=== PATIENT | female | born 1990 | race Caucasian/White ===

== ENCOUNTER 2020-10-24 18:58 | Emergency (ER) | payer OTHER ==
[~2020-10-24 18:58] MED LIST: NORCO 5-325 TA1 EACH PO; PHENERGAN25 M1 PO; ZOFRAN ODT4 MG SL
[2020-10-24] MEDS ORDERED: ONDANSETRON ODT4 MG SL (20:31)
[2020-10-24] MEDS ORDERED: IBUPROFEN800 MG PO (20:31)
[2020-10-24] MEDS ORDERED: PERCOCET 5-3251 EACH PO (20:31)
== END 2020-10-24 21:05 | disposition home or self-care (01) ==
LOC: FER 18:58
DX: S52.502A Unspecified fracture of the lower end of left radius, initial encounter for closed fracture (principal); Z98.890 Other specified postprocedural states; Z88.2 Allergy status to sulfonamides; Z79.3 Long term (current) use of hormonal contraceptives; W19.XXXA Unspecified fall, initial encounter; W22.8XXA Striking against or struck by other objects, initial encounter; Y93.89 Activity, other specified; Y92.410 Unspecified street and highway as the place of occurrence of the external cause
CPT/HCPCS: 73110; 96372; J1170; J1885

== ENCOUNTER 2021-07-02 20:36 | Emergency (ER) | payer OTHER ==
[~2021-07-02 20:36] MED LIST changes: +IBUPROFEN800 MG PO; +ONDANSETRON ODT4 MG SL; +PERCOCET 5-3251 EACH PO
[2021-07-02] MEDS ORDERED: CEPHALEXIN500 MG PO (21:44)
== END 2021-07-02 21:34 | disposition home or self-care (01) ==
LOC: FER 20:36
DX: S61.012A Laceration without foreign body of left thumb without damage to nail, initial encounter (principal); Z88.2 Allergy status to sulfonamides; W45.8XXA Other foreign body or object entering through skin, initial encounter; Y92.009 Unspecified place in unspecified non-institutional (private) residence as the place of occurrence of the external cause
CPT/HCPCS: 73130